=== PATIENT | male | born 1970 | race African-American/Black ===

== ENCOUNTER 2019-05-02 12:18 | Inpatient (IN) | payer MEDICAID ==
[~2019-05-02] VITALS: Ht 195.6 cm; Wt 148.1 kg
[2019-05-02] VITALS (29 sets, daily range): BP systolic 99–177; BP diastolic 44–117
[2019-05-02 13:05] LABS: BASOPHILS % 1.1 % (0.0-2.0); EOSINOPHILS % 2.5 % (0.0-5.0); HEMATOCRIT. 44.5 % (42.0-52.0); HEMOGLOBIN. 14.4 g/dL (14.0-18.0); LYMPHOCYTES % 37.6 % (20.0-50.0); MEAN CORPUSCULAR HEMOGLOBIN 25.1 pg (28.0-32.0); MEAN CORPUSCULAR VOLUME 77.4 fL (80.0-94.0); MEAN PLATELET VOLUME 9.7 fl (7.4-10.4); MONOCYTES % 9.3 % (2.0-8.0); NEUTROPHILS % 49.5 % (40.0-76.0); PLATELET 200 x1000/uL (130-400); RED BLOOD CELL COUNT 5.75 mill/uL (4.7-6.1); RED CELL DISTRIBUTION WIDTH 15.3 % (11.6-14.6)
[2019-05-02 13:13] LABS: CHLORIDE 106 mEq/L (98-107)
[2019-05-02] MEDS ORDERED: NICARDIPINE 40MG/200ML PREMIX 200 ML IV PRN (13:15)
[2019-05-02] MEDS ORDERED: LEVETIRACETAM 1000MG/100ML 100 ML IV ONE (13:15)
[2019-05-02] MEDS ORDERED: MANNITOL 12.5G (25%) VIAL 50ML IV ONE (13:15)
[2019-05-02] MEDS ORDERED: DEXAMETHASONE 4MG/ML 1ML VIAL IV ONE (13:15)
[2019-05-02 13:17] LABS: ETHANOL BLOOD < 10 mg/dL
[2019-05-02 13:22] LABS: INR 1.1; PROTHROMBIN TIME 11.1 sec (9.6-11.0)
[2019-05-02] MEDS ORDERED: SODIUM CHLORIDE 0.9% 1,000 ML IV SCH (13:34)
[2019-05-02] MEDS ORDERED: BACITRACIN 50,000 UNITS/VIAL ONE (13:41)
[2019-05-02] MEDS ORDERED: THROMBIN (BOVINE) 5000 UNITS/VIAL TOP ONE (13:41)
[2019-05-02] MEDS ORDERED: LACTATED RINGERS 3,000 ML IV ONE (13:41)
[2019-05-02] MEDS ORDERED: POVIDONE-IODINE OINT 28.4GM TOP ONE (13:41)
[2019-05-02] MEDS ORDERED: BACITRACIN 15GM TUBE TOP ONE (13:41)
[2019-05-02] MEDS ORDERED: NORMAL SALINE 0.9% 10 ML SYR ONE (13:41)
[2019-05-02] MEDS ORDERED: LIDOCAINE HCL/EPINEPHRINE 1%-EPI 1:100,000 20 ML VIAL ONE (13:42)
[2019-05-02] MEDS ORDERED: ACETAMINOPHEN 650MG SUPP PR PRN (13:45)
[2019-05-02] MEDS ORDERED: ONDANSETRON HCL 4MG/2ML INJ IV PRN ×2 (13:45→15:15)
[2019-05-02] MEDS ORDERED: IPRATROPIUM/ALBUTEROL 0.5-3(2.5)MG/3ML NEB INH PRN (13:45)
[2019-05-02] MEDS ORDERED: DIPHENHYDRAMINE 50MG/ML VIAL IV PRN (13:45)
[2019-05-02] MEDS ORDERED: MANNITOL 20% 500 ML IV ONE (13:47)
[2019-05-02] MEDS ORDERED: FUROSEMIDE 40MG/4ML VIAL ONE (13:47)
[2019-05-02 13:49] LABS: PHOSPHORUS 2.9 mg/dL (2.5-4.9)
[2019-05-02] MEDS ORDERED: FENTANYL CITRATE/PF 50MCG/ML 2ML VIAL ONE (14:03)
[2019-05-02] MEDS ORDERED: ROCURONIUM BROMIDE 10MG/ML VIAL 5ML IV ONE (14:03)
[2019-05-02] MEDS ORDERED: PROPOFOL 200MG/20ML VIAL IV ONE ×2 (14:03→14:24)
[2019-05-02] MEDS ORDERED: MIDAZOLAM HCL 2 MG/2 ML VIAL ONE (14:03)
[2019-05-02] MEDS ORDERED: NEOSTIGMINE METHYLSULFATE 1MG/ML 10 ML VIAL ONE (14:03)
[2019-05-02] MEDS ORDERED: SUCCINYLCHOLINE CHLORIDE 200MG/10ML IV ONE (14:04)
[2019-05-02] MEDS ORDERED: SODIUM CHLORIDE 0.9% 10ML VIAL ONE ×2 (14:04→15:30)
[2019-05-02] MEDS ORDERED: LIDOCAINE HCL/PF 1% 10 MG/ML 5ML VIAL ONE (14:04)
[2019-05-02] MEDS ORDERED: DEXAMETHASONE 4MG/ML 1ML VIAL ONE (14:04)
[2019-05-02] MEDS ORDERED: EPHEDRINE SULFATE 50MG/ML VIAL ONE (14:04)
[2019-05-02] MEDS ORDERED: PHENYLEPHRINE HCL 10 MG/ML 1ML (IV VIAL) IV ONE (14:04)
[2019-05-02] MEDS ORDERED: METOCLOPRAMIDE HCL 10MG/2ML VIAL ONE (14:04)
[2019-05-02] MEDS ORDERED: GLYCOPYRROLATE 0.2 MG/ML 2ML VIAL ONE (14:04)
[2019-05-02] MEDS ORDERED: CEFAZOLIN SODIUM 1000MG/VIAL ONE (14:04)
[2019-05-02] MEDS ORDERED: IPRATROPIUM/ALBUTEROL 0.5-3(2.5)MG/3ML NEB HHN PRN (14:15)
[2019-05-02] MEDS ORDERED: HYDROMORPHONE HCL/PF 2MG/ML CPJ IV PRN (15:15)
[2019-05-02] MEDS ORDERED: MEPERIDINE HCL/PF 25MG/ML CPJ IV PRN (15:15)
[2019-05-02] MEDS ORDERED: LABETALOL HCL 5MG/ML VIAL 20ML IV PRN (15:15)
[2019-05-02] MEDS ORDERED: VECURONIUM BROMIDE 10 MG/VIAL IV ONE (15:30)
[2019-05-02] MEDS ORDERED: LABETALOL HCL 5MG/ML VIAL 20ML IV ONE (15:31)
[2019-05-02] MEDS ORDERED: LEVETIRACETAM 500 MG in SODIUM CHLORIDE 0.9% 100 ML IV SCH ×2 (15:45→21:00)
[2019-05-02] MEDS ORDERED: NICARDIPINE 100 MG in SODIUM CHLORIDE 0.9% 60 ML IV PRN ×2 (15:45→17:15)
[2019-05-02 16:44] LABS: BG BASE EXCESS -3.4 mmol/L (-2.0-2.0); BG CARBOXYHEMOGLOBIN 0.9 % (0.5-1.5); BG DEOXYHEMOGLOBIN 1.5 % (0.0-5.0); BG METHEMOGLOBIN 0.5 % (0.0-1.5); BG OXYGEN SATURATION 98.5 % (92.0-98.5); BG OXYHEMOGLOBIN 97.1 % (94.0-97.0); BG PCO2 40.9 mmHg (35.0-45.0); BG PH 7.348 (7.350-7.450); BG PO2 132.7 mmHg (75.0-100.0); BG SAMPLE SITE RIGHT RADIAL; BG TIDAL VOLUME(mL) 600 mL; BG TOTAL HEMOGLOBIN 15.1 g/dL (12.0-18.0); BG VENT MODE VENT - A/C; BG VENT RATE 10 set
[2019-05-02] MEDS: PROPOFOL 10MG/ML 100ML 100 ML IV PRN ×4 (17:11→23:44)
[2019-05-02] MEDS: DEXT 5%/LACTATED RINGERS 1,000 ML IV SCH (17:13)
[2019-05-02] MEDS: NICARDIPINE 100 MG in SODIUM CHLORIDE 0.9% 60 ML IV PRN (17:30)
[2019-05-02] MEDS: CEFAZOLIN 1000MG PREMIX 50 ML IV SCH (17:32)
[2019-05-02] MEDS: DEXAMETHASONE 4MG/ML 1ML VIAL IV SCH ×2 (17:33→23:43)
[2019-05-02] MEDS ORDERED: FURO40TA5 MT (18:58)
[2019-05-02] MEDS ORDERED: METF500T60 PO (18:58)
[2019-05-02] MEDS: MORPHINE SULFATE 4 MG/ML CPJ (NOT FOR IM USE) IV PRN (20:43)
[2019-05-02 21:30] LABS: CREATINE KINASE MB FRACTION 2.6 ng/mL (0.5-3.6)
[2019-05-02] MEDS ORDERED: CEFAZOLIN SODIUM 1000MG/VIAL IV SCH (22:00)
[2019-05-02] MEDS ORDERED: DEXTROSE 50% WATER 50ML SYRINGE IV PRN (23:15)
[2019-05-02 23:18] LABS: CREATINE KINASE MB FRACTION 2.6 ng/mL (0.5-3.6)
[2019-05-03] VITALS (94 sets, daily range): BP systolic 113–162; BP diastolic 41–101
[2019-05-03] MEDS: CEFAZOLIN 1000MG PREMIX 50 ML IV SCH ×2 (01:52→09:52)
[2019-05-03] MEDS: PROPOFOL 10MG/ML 100ML 100 ML IV PRN ×3 (01:52→06:30)
[2019-05-03] MEDS: NICARDIPINE 100 MG in SODIUM CHLORIDE 0.9% 60 ML IV PRN ×3 (02:08→17:10)
[2019-05-03] MEDS: MORPHINE SULFATE 4 MG/ML CPJ (NOT FOR IM USE) IV PRN ×2 (04:01→20:30)
[2019-05-03 05:15] LABS: BASOPHILS % 0.1 % (0.0-2.0); HEMATOCRIT. 44.6 % (42.0-52.0); HEMOGLOBIN. 14.2 g/dL (14.0-18.0); LYMPHOCYTES % 8.7 % (20.0-50.0); MEAN CORPUSCULAR HEMOGLOBIN 24.7 pg (28.0-32.0); MEAN CORPUSCULAR VOLUME 77.7 fL (80.0-94.0); MONOCYTES % 2.9 % (2.0-8.0); NEUTROPHILS % 88.3 % (40.0-76.0); PLATELET 186 x1000/uL (130-400); RED BLOOD CELL COUNT 5.74 mill/uL (4.7-6.1); RED CELL DISTRIBUTION WIDTH 15.4 % (11.6-14.6)
[2019-05-03 05:17] LABS: CHLORIDE 105 mEq/L (98-107)
[2019-05-03 05:25] LABS: HDL CHOLESTEROL 45 mg/dL (40-59); LDL CHOLESTEROL 114 mg/dL (5-100)
[2019-05-03] MEDS: INSULIN LISPRO 100 UNITS/ML SUBCUT SCH ×4 (06:12→21:42)
[2019-05-03] MEDS: DEXAMETHASONE 4MG/ML 1ML VIAL IV SCH ×3 (06:12→17:41)
[2019-05-03] MEDS: BLOOD SUGAR DIAGNOSTIC STRIP TEST SCH ×4 (06:12→21:41)
[2019-05-03 08:11] LABS: BG BASE EXCESS -2.2 mmol/L (-2.0-2.0); BG CARBOXYHEMOGLOBIN 0.4 % (0.5-1.5); BG DEOXYHEMOGLOBIN 2.9 % (0.0-5.0); BG FRACTION INSPIRED OXYGEN 50; BG HCO3 ACT 22.1 mmol/L (22.0-26.0); BG METHEMOGLOBIN 0.1 % (0.0-1.5); BG OXYGEN SATURATION 97.1 % (92.0-98.5); BG OXYHEMOGLOBIN 96.6 % (94.0-97.0); BG PCO2 36.5 mmHg (35.0-45.0); BG PH 7.399 (7.350-7.450); BG PO2 92.6 mmHg (75.0-100.0); BG SAMPLE SITE LEFT RADIAL; BG TIDAL VOLUME(mL) 600 mL; BG TOTAL HEMOGLOBIN 14.6 g/dL (12.0-18.0); BG VENT MODE VENT - A/C; BG VENT RATE 12 set
[2019-05-03] MEDS ORDERED: MORPHINE SULFATE 2 MG/ML CPJ (NOT FOR IM USE) IV NR (08:45)
[2019-05-03] MEDS: LEVETIRACETAM 500MG in SODIUM CHLORIDE 0.9% 100ML IV SCH ×2 (08:54→20:30)
[2019-05-03] MEDS: DEXT 5%/LACTATED RINGERS 1,000 ML IV SCH (09:53)
[2019-05-03 10:07] LABS: BG BASE EXCESS 0.2 mmol/L (-2.0-2.0); BG CARBOXYHEMOGLOBIN 0.3 % (0.5-1.5); BG DEOXYHEMOGLOBIN 4.3 % (0.0-5.0); BG FRACTION INSPIRED OXYGEN 40; BG METHEMOGLOBIN 0.4 % (0.0-1.5); BG OXYGEN SATURATION 95.7 % (92.0-98.5); BG PCO2 36.6 mmHg (35.0-45.0); BG PH 7.435 (7.350-7.450); BG PRESSURE SUPPORT 8; BG SAMPLE SITE RIGHT RADIAL; BG TOTAL HEMOGLOBIN 14.9 g/dL (12.0-18.0); BG VENT MODE VENT - CPAP
[2019-05-03] MEDS: FAMOTIDINE 20MG TABLET PO SCH ×2 (12:00→20:30)
[2019-05-04] VITALS (92 sets, daily range): BP systolic 51–155; BP diastolic 24–91
[2019-05-04] MEDS: NICARDIPINE 100 MG in SODIUM CHLORIDE 0.9% 60 ML IV PRN ×2 (00:23→08:01)
[2019-05-04] MEDS: DEXT 5%/LACTATED RINGERS 1,000 ML IV SCH ×2 (02:24→18:07)
[2019-05-04 05:10] LABS: CHLORIDE 110 mEq/L (98-107)
[2019-05-04 05:16] LABS: HEMATOCRIT. 44.2 % (42.0-52.0); HEMOGLOBIN. 14.2 g/dL (14.0-18.0); MEAN CORPUSCULAR HEMOGLOBIN 24.6 pg (28.0-32.0); MEAN CORPUSCULAR VOLUME 76.9 fL (80.0-94.0); MEAN PLATELET VOLUME 10.2 fl (7.4-10.4); PLATELET 194 x1000/uL (130-400); RED BLOOD CELL COUNT 5.75 mill/uL (4.7-6.1); RED CELL DISTRIBUTION WIDTH 15.2 % (11.6-14.6)
[2019-05-04] MEDS: BLOOD SUGAR DIAGNOSTIC STRIP TEST SCH ×4 (06:39→21:00)
[2019-05-04] MEDS: INSULIN LISPRO 100 UNITS/ML SUBCUT SCH ×4 (06:39→21:00)
[2019-05-04 08:12] LABS: PLATELET ESTIMATE NORMAL
[2019-05-04] MEDS: FAMOTIDINE 20MG TABLET PO SCH (09:00)
[2019-05-04] MEDS: LEVETIRACETAM 500MG in SODIUM CHLORIDE 0.9% 100ML IV SCH ×2 (09:42→21:08)
[2019-05-04] MEDS ORDERED: FAMOTIDINE 20MG/2ML VIAL IV SCH (10:00)
[2019-05-04] MEDS: FAMOTIDINE 20MG/2ML VIAL IV SCH ×2 (10:52→21:08)
[2019-05-04 16:58] LABS: CLARITY URINE CLEAR (CLEAR); COLOR URINE YELLOW (YELLOW); KETONES URINE TRACE (NEGATIVE); LEUKOCYTE ESTERASE URINE NEGATIVE (NEGATIVE); NITRITE URINE NEGATIVE (NEGATIVE); OCCULT BLOOD URINE 1+ (NEGATIVE); PROTEIN URINE TRACE (NEGATIVE); SPECIFIC GRAVITY URINE 1.029 (1.005-1.030)
[2019-05-04] MEDS: MORPHINE SULFATE 4 MG/ML CPJ (NOT FOR IM USE) IV PRN (17:12)
[2019-05-05] VITALS (96 sets, daily range): BP systolic 101–167; BP diastolic 41–88
[2019-05-05] MEDS: DEXT 5%/LACTATED RINGERS 1,000 ML IV SCH (02:55)
[2019-05-05 05:01] LABS: BASOPHILS % 0.2 % (0.0-2.0); HEMATOCRIT. 44.1 % (42.0-52.0); LYMPHOCYTES % 11.9 % (20.0-50.0); MEAN CORPUSCULAR HEMOGLOBIN 24.7 pg (28.0-32.0); MEAN PLATELET VOLUME 10.8 fl (7.4-10.4); MONOCYTES % 7.6 % (2.0-8.0); NEUTROPHILS % 80.3 % (40.0-76.0); PLATELET 180 x1000/uL (130-400); RED BLOOD CELL COUNT 5.66 mill/uL (4.7-6.1); RED CELL DISTRIBUTION WIDTH 15.3 % (11.6-14.6)
[2019-05-05 05:07] LABS: CHLORIDE 107 mEq/L (98-107)
[2019-05-05] MEDS: NICARDIPINE 100 MG in SODIUM CHLORIDE 0.9% 60 ML IV PRN ×3 (05:40→21:09)
[2019-05-05] MEDS: BLOOD SUGAR DIAGNOSTIC STRIP TEST SCH ×4 (06:30→20:15)
[2019-05-05] MEDS: INSULIN LISPRO 100 UNITS/ML SUBCUT SCH ×4 (06:39→20:15)
[2019-05-05] MEDS: FAMOTIDINE 20MG/2ML VIAL IV SCH ×2 (08:25→20:14)
[2019-05-05] MEDS: LEVETIRACETAM 500MG in SODIUM CHLORIDE 0.9% 100ML IV SCH ×2 (08:25→20:14)
[2019-05-05] MEDS: LOSARTAN POTASSIUM 50 MG TABLET PO SCH (10:23)
[2019-05-05] MEDS: AMLODIPINE 5MG TABLET PO SCH ×2 (10:23→20:14)
[2019-05-05] MEDS: MORPHINE SULFATE 4 MG/ML CPJ (NOT FOR IM USE) IV PRN ×3 (10:25→20:16)
[2019-05-05] MEDS ORDERED: MORPHINE SULFATE 2 MG/ML CPJ (NOT FOR IM USE) IV NR (16:45)
[2019-05-06] VITALS (41 sets, daily range): BP systolic 98–139; BP diastolic 59–96
[2019-05-06] MEDS: MORPHINE SULFATE 4 MG/ML CPJ (NOT FOR IM USE) IV PRN (02:13)
[2019-05-06 04:45] LABS: BASOPHILS % 0.3 % (0.0-2.0); EOSINOPHILS % 0.6 % (0.0-5.0); HEMOGLOBIN. 13.9 g/dL (14.0-18.0); LYMPHOCYTES % 21.9 % (20.0-50.0); MEAN CORPUSCULAR HEMOGLOBIN 24.4 pg (28.0-32.0); MEAN CORPUSCULAR VOLUME 77.5 fL (80.0-94.0); MEAN PLATELET VOLUME 10.3 fl (7.4-10.4); MONOCYTES % 9.6 % (2.0-8.0); NEUTROPHILS % 67.6 % (40.0-76.0); PLATELET 165 x1000/uL (130-400); RED BLOOD CELL COUNT 5.68 mill/uL (4.7-6.1)
[2019-05-06 04:54] LABS: CHLORIDE 104 mEq/L (98-107)
[2019-05-06] MEDS: INSULIN LISPRO 100 UNITS/ML SUBCUT SCH ×5 (06:06→20:52)
[2019-05-06] MEDS: BLOOD SUGAR DIAGNOSTIC STRIP TEST SCH ×4 (06:06→20:51)
[2019-05-06] MEDS ORDERED: POTASSIUM CHLORIDE 20MEQ TABLET SR PO SCH (08:30)
[2019-05-06] MEDS: LOSARTAN POTASSIUM 50 MG TABLET PO SCH (08:32)
[2019-05-06] MEDS: AMLODIPINE 5MG TABLET PO SCH ×2 (08:32→20:10)
[2019-05-06] MEDS: FAMOTIDINE 20MG/2ML VIAL IV SCH (08:32)
[2019-05-06] MEDS: LEVETIRACETAM 500MG in SODIUM CHLORIDE 0.9% 100ML IV SCH (08:33)
[2019-05-06] MEDS: LEVETIRACETAM 500MG TABLET PO SCH ×2 (11:09→20:10)
[2019-05-06] MEDS: FAMOTIDINE 20MG TABLET PO SCH (20:10)
[2019-05-06] MEDS: ACETAMINOPHEN 325MG TABLET PO PRN (20:11)
[2019-05-07] VITALS: BP 116/67
[2019-05-07 04:00] VITALS: BP 114/61
[2019-05-07 06:17] LABS: CHLORIDE 104 mEq/L (98-107)
[2019-05-07 06:25] LABS: BASOPHILS % 0.2 % (0.0-2.0); EOSINOPHILS % 1.3 % (0.0-5.0); HEMATOCRIT. 41.5 % (42.0-52.0); HEMOGLOBIN. 13.7 g/dL (14.0-18.0); MEAN CORPUSCULAR HEMOGLOBIN 25.3 pg (28.0-32.0); MEAN CORPUSCULAR VOLUME 76.7 fL (80.0-94.0); MEAN PLATELET VOLUME 10.2 fl (7.4-10.4); MONOCYTES % 9.1 % (2.0-8.0); NEUTROPHILS % 55.4 % (40.0-76.0); PLATELET 151 x1000/uL (130-400); RED BLOOD CELL COUNT 5.42 mill/uL (4.7-6.1)
[2019-05-07] MEDS: BLOOD SUGAR DIAGNOSTIC STRIP TEST SCH ×4 (07:09→21:00)
[2019-05-07] MEDS: INSULIN LISPRO 100 UNITS/ML SUBCUT SCH ×4 (07:50→21:00)
[2019-05-07 08:00] VITALS: BP 129/72
[2019-05-07] MEDS: LOSARTAN POTASSIUM 50 MG TABLET PO SCH (09:30)
[2019-05-07] MEDS: FAMOTIDINE 20MG TABLET PO SCH ×2 (09:30→21:32)
[2019-05-07] MEDS: LEVETIRACETAM 500MG TABLET PO SCH ×2 (09:31→21:31)
[2019-05-07] MEDS: AMLODIPINE 5MG TABLET PO SCH ×2 (09:31→21:31)
[2019-05-07 12:00] VITALS: BP 102/61
[2019-05-07 16:00] VITALS: BP 127/79
[2019-05-07] MEDS ORDERED: LOSA50TA3 PO (18:57)
[2019-05-07] MEDS ORDERED: KEPP500 PO (18:57)
[2019-05-07] MEDS ORDERED: AMLO5TAB88 PO (18:57)
[2019-05-07] MEDS ORDERED: ATOR10TA69 MT (18:58)
[2019-05-07 20:00] VITALS: BP 129/80
[2019-05-07] MEDS: ACETAMINOPHEN 325MG TABLET PO PRN (21:31)
[2019-05-08] VITALS (7 sets, daily range): BP systolic 107–144; BP diastolic 68–91
[2019-05-08] MEDS: INSULIN LISPRO 100 UNITS/ML SUBCUT SCH ×4 (07:50→20:36)
[2019-05-08] MEDS: BLOOD SUGAR DIAGNOSTIC STRIP TEST SCH ×4 (07:55→20:18)
[2019-05-08] MEDS: LOSARTAN POTASSIUM 50 MG TABLET PO SCH (09:00)
[2019-05-08] MEDS: AMLODIPINE 5MG TABLET PO SCH ×2 (09:00→20:37)
[2019-05-08] MEDS: LEVETIRACETAM 500MG TABLET PO SCH ×2 (09:20→20:38)
[2019-05-08] MEDS: ACETAMINOPHEN 325MG TABLET PO PRN ×2 (09:20→20:42)
[2019-05-08] MEDS: FAMOTIDINE 20MG TABLET PO SCH ×2 (09:20→20:38)
== END 2019-05-08 21:00 | disposition home health service (06) | DRG 21 ==
LOC: ER 12:18 → ORIP 13:39 → MICUSO 16:16 → 6EST 05-06 17:34
PROVIDERS: ADMIT Internal Medicine; ATTEND Internal Medicine
PROC: 00C40ZZ Extirpation of Matter from Intracranial Subdural Space, Open Approach (ICD-10-PCS; principal; 2019-05-02)
PROC: 00U207Z Supplement Dura Mater with Autologous Tissue Substitute, Open Approach (ICD-10-PCS; 2019-05-02)
PROC: 4A103BD Monitoring of Intracranial Pressure, Percutaneous Approach (ICD-10-PCS; 2019-05-02)
PROC: 00H032Z Insertion of Monitoring Device into Brain, Percutaneous Approach (ICD-10-PCS; 2019-05-02)
PROC: 0NQ00ZZ Repair Skull, Open Approach (ICD-10-PCS; 2019-05-02)
DX: I62.02 Nontraumatic subacute subdural hemorrhage (principal); R40.20 Unspecified coma; G93.41 Metabolic encephalopathy; R47.01 Aphasia; E11.9 Type 2 diabetes mellitus without complications; E66.9 Obesity, unspecified; T38.0X5A Adverse effect of glucocorticoids and synthetic analogues, initial encounter; R74.0 Nonspecific elevation of levels of transaminase and lactic acid dehydrogenase [LDH]; I10 Essential (primary) hypertension; Z79.84 Long term (current) use of oral hypoglycemic drugs; Z79.899 Other long term (current) drug therapy; Z71.3 Dietary counseling and surveillance; Y92.89 Other specified places as the place of occurrence of the external cause; Z68.38 Body mass index [BMI] 38.0-38.9, adult
CPT/HCPCS: 36415; 36600; 71045; 80048; 80061; 80320; 81003; 82375; 82550; 82553; 82805; 82962; 83735; 84100; 84145; 84443; 88305; 92610; 93005; 93970; 94002; 94640; 96365; 96375; 97116; 97162; 97166; 97530; 97535; 99291; C1713; J0330; J0690; J1100; J1815; J1940; J1953; J2150; J2250; J2270; J2370; J2405; J2704; J2710; J2765; J3010; J3490; J7030; J7050; J7120; J7620; G0480